=== PATIENT | female | born 2000 | race African-American/Black ===

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

== ENCOUNTER 2021-06-03 14:05 | Emergency (ER) | payer MEDICAID, OTHER ==
[~2021-06-03] VITALS: Ht 170.2 cm; Wt 72.0 kg
[2021-06-03 14:12] VITALS: BP 129/80
[2021-06-03] MEDS ORDERED: ACETAMINOPHEN 325MG TABLET PO STA (15:23)
[2021-06-03 19:28] LABS: BASOPHILS % 0.4 % (0.0-2.0); EOSINOPHILS % 0.5 % (0.0-5.0); HEMATOCRIT. 34.7 % (36.0-48.0); HEMOGLOBIN. 11.5 g/dL (12.0-16.0); LYMPHOCYTES % 19.7 % (20.0-50.0); MEAN CORPUSCULAR HEMOGLOBIN 26.9 pg (28.0-32.0); MEAN CORPUSCULAR VOLUME 80.9 fL (81.0-99.0); MONOCYTES % 7.3 % (2.0-8.0); NEUTROPHILS % 72.1 % (40.0-76.0); PLATELET 260 x1000/uL (130-400); RED BLOOD CELL COUNT 4.29 mill/uL (4.2-5.4); RED CELL DISTRIBUTION WIDTH 16.6 % (11.6-14.6)
[2021-06-03 19:37] LABS: CHLORIDE 107 mEq/L (98-107)
[2021-06-03 20:03] LABS: B-HCG QUANTITATIVE 54105 mIU/mL (<3)
== END 2021-06-03 23:48 | disposition home or self-care (01) ==
LOC: ER 14:05
DX: O20.8 Other hemorrhage in early pregnancy (principal); O26.891 Other specified pregnancy related conditions, first trimester; M54.50 Low back pain, unspecified; Z3A.01 Less than 8 weeks gestation of pregnancy; V43.52XA Car driver injured in collision with other type car in traffic accident, initial encounter; Y93.89 Activity, other specified; Y92.488 Other paved roadways as the place of occurrence of the external cause
CPT/HCPCS: 36415; 73560; 73590; 76801; 80053; 84702; 85025; 86850; 86900; 99284